=== PATIENT | male | born 1955 | race Caucasian/White ===

== ENCOUNTER 2018-12-30 10:40 | Day surgery (SDC) | payer BC ==
[2018-12-30] MEDS ORDERED: PROPOFOL 10 MG/ML VIAL IV ONE (10:41)
[2018-12-30] MEDS ORDERED: LIDOCAINE 2% MDV (20MG/ML) 20ML VIAL IV ONE (10:41)
--- NOTE | 2019-01-01 09:00 | Operative Note ---
DATE OF SURGERY: 12/30/2018 OPERATION: COLONOSCOPY to the cecum. INDICATION: Colorectal cancer screening. The patient's last examination was completed in [place], [place]. He presents at this time for screening only. There is no family history of colon cancer. He denies any GI issues or concerns. ANESTHESIA: Intravenous sedation was administered by the department of anesthesiology and included Diprivan titrated to effect. PROCEDURE: Following informed consent from this alert individual including a discussion of the risks and benefits of the procedure and an opportunity for the patient to ask questions, the patient was in the left lateral decubitus position. A digital rectal examination was performed. No abnormalities were noted. Following this, the Olympus [id number] video colonoscope was inserted into the rectum without resistance. The rectal mucosa had a normal appearance with normal folds and distensibility. The colonoscope was advanced up through the bowel to the level of the cecum without difficulty. Throughout the colon, the mucosa appeared normal, the folds were normal, and the bowel was fairly well distensible. The colon preparation was good. The cecum was defined by noting the appendiceal orifice and cecal pouch and ileocecal valve. From the base of the cecum, the colonoscope was then slowly withdrawn. No abnormalities were noted throughout the bowel. Retroflexion in the rectum, however, did demonstrate small internal hemorrhoids. The endoscope was straightened and removed. The patient tolerated the procedure well and was returned to the recovery area in stable condition. IMPRESSION: 1. Internal hemorrhoids. 2. Otherwise unremarkable colonoscopy to the cecum. RECOMMENDATIONS: The patient was advised to have recheck colonoscopy in 10 years' time for screening purposes. He will otherwise follow up with Abdelrahman Linder DO. As always, thank you for allowing me to participate in the care of your patient. CC: DO CRESENCIO Mathias
== END 2018-12-30 12:50 | disposition home or self-care (01) ==
LOC: HOP 10:40
PROVIDERS: ATTEND Internal Medicine Gastroenterology
DX: Z12.11 Encounter for screening for malignant neoplasm of colon (principal); E78.00 Pure hypercholesterolemia, unspecified; M19.90 Unspecified osteoarthritis, unspecified site
CPT/HCPCS: 00812; G0121